=== PATIENT | male | born 1975 | race African-American/Black ===

== ENCOUNTER → 2019-01-06 09:11 | Outpatient (CLI) | payer OTHER, MEDICAID, SELFPAY ==
[2019-01-06 09:43] LABS: Hematocrit 41.8 % (41-53); Hemoglobin 13.7 g/dL (13.5-17.5); Mean Corpuscular HGB Conc 32.8 % (30-36); Mean Corpuscular Hemoglobin 26.1 PG (26-34); Mean Corpuscular Volume 79.4 fL (80-100); Platelet Count 208 X10^3/uL (150-400); Red Blood Cell Count 5.26 X10^6/uL (4.5-5.9); White Blood Cell Count 6.1 X10^3/uL (4.5-11.0)
[2019-01-06 09:59] LABS: Alanine Aminotransferase 32 IU/L (21-72); Albumin 4.4 g/dL (3.5-5.0); Albumin Globulin Ratio 1.5 (1.0-2.8); Alkaline Phosphatase 99 U/L (38-126); Aspartate Aminotransferase 42 IU/L (17-59); BUN Creatinine Ratio 18.9 (6-22); Bilirubin Total 0.5 mg/dL (0.2-1.3); Blood Urea Nitrogen 17 mg/dL (9-20); Calcium 9.2 mg/dL (8.4-10.2); Carbon Dioxide 24 mmol/L (22-32); Chloride 106 mmol/L (98-107); Cholesterol 204 mg/dL (140-199); Estimated Glomerular Filt Rate > 60.0 mL/min (>60); Globulin 2.9 g/dL (1.7-4.1); Glucose 97 mg/dL (70-100); HDL Cholesterol 105 mg/dL (40-60); HEMOLYSIS 21 (0-50); LDL Cholesterol Calculated 85 mg/dL (<100); Sodium 138 mmol/L (137-145); Total Protein 7.3 g/dL (6.3-8.2); Triglycerides 69 mg/dL (35-150)
[2019-01-06 10:07] LABS: Appearance Urine UA CLEAR; Bilirubin Urine UA NEGATIVE (NEGATIVE); Color Urine UA YELLOW; Glucose Urine UA NEGATIVE (Negative); Ketones Urine UA NEGATIVE (NEGATIVE); Leukocyte Esterase Urine UA NEGATIVE (NEGATIVE); Nitrite Urine UA NEGATIVE (Negative); Occult Blood Urine UA TRACE-INTACT (Negative); Protein Urine UA NEGATIVE (Negative); Specific Gravity Urine UA 1.025 (1.000-1.035); Urobilinogen Urine UA 0.2 E.U./dL (0.2); pH Urine UA 5.5 (4.5-8.0)
[2019-01-06 10:19] LABS: Bacteria Urine Occasional (0-1); RBC Urine 0-1/HPF (0-5/HPF); WBC Urine 0-1/HPF (0-5/HPF)
== END ==
PROVIDERS: Visit Provider Nurse Practitioner Family
DX: F10.10 Alcohol abuse, uncomplicated (principal); H53.9 Unspecified visual disturbance; Z13.6 Encounter for screening for cardiovascular disorders; Z00.00 Encounter for general adult medical examination without abnormal findings; Z72.0 Tobacco use
CPT/HCPCS: 36415; 80053; 80061; 81001; 85027

== ENCOUNTER → 2019-02-02 08:53 | Outpatient (CLI) | payer OTHER, MEDICAID, SELFPAY ==
--- NOTE | 2019-02-02 | DI.CT.S_ITS ---
PROCEDURE: CT ABDOMEN WO/W CON INDICATIONS: Cyst of kidney, acquired TECHNIQUE: Optional 5 mm thick noncontrast images acquired from the diaphragm to the iliac crests. After the administration of intravenous contrast, 5 mm thick images again acquired from the diaphragm to the iliac crests in the arterial and urographic phases. 5 mm thick coronal and sagittal reformats were then acquired. For radiation dose reduction, the following was used: automated exposure control, adjustment of mA and/or kV according to patient size. COMPARISON: None. FINDINGS: Image quality: Excellent. Lung bases: Lung bases are clear. Heart size is normal. Genitourinary: Kidneys are normal in size and symmetric in enhancement. No hydronephrosis. There is a 1.3 cm cyst in the superior pole of the right kidney demonstrating a thin septation. A 4 mm calcification is noted within the gravity dependent area of the cyst. There is a 5 mm low density cortical nodule in the superior pole of the left kidney, too small to further characterize but likely a simple cyst. Other solid organs: Liver is normal in size and enhancement. Gallbladder is normal. Biliary system is non dilated. Pancreas enhances normally. Spleen is normal in size and enhancement. No adrenal nodules. Peritoneum and bowel: Unenhanced bowel loops are normal in wall thickness and caliber. No free fluid or air. Nodes and vessels: No retroperitoneal or mesenteric adenopathy by size criteria. Aorta and inferior vena cava are normal in caliber. Bones: No suspicious bony lesions. No vertebral body compression fractures. Miscellaneous: No ventral hernias. IMPRESSION: 1. A 1.3 cm Bosniak 2F cyst in the superior pole of the right kidney. A followup CT or ultrasound is suggested in 6-12 months. 2. A 5 mm low density cortical nodule in the superior pole of the left kidney, too small to further characterize but likely a simple cortical cyst. Dictated by: Cecilia Coker M.D. on 02/02/2019 at 10:34 Approved by: Cecilia Coker M.D. on 02/02/2019 at 10:41
== END ==
PROVIDERS: PCP Nurse Practitioner Family; Visit Provider Physician Assistant
DX: N28.1 Cyst of kidney, acquired (principal)
CPT/HCPCS: 74170; Q9967

== ENCOUNTER → 2020-10-18 10:39 | Outpatient (CLI) | payer OTHER, MEDICAID, SELFPAY ==
--- NOTE | 2020-10-18 10:48 | DI.RAD.S_ITS ---
PROCEDURE: XR LUMBAR SPINE 2-3V INDICATIONS: low back pain TECHNIQUE: 3 views of the lumbar spine were acquired. COMPARISON: [facility], CT, L-SPINE WITHOUT CONTRAST, 11/08/2017, 13:00. FINDINGS: Bones: 5 [id number] vertebrae are present. There is trace multilevel retrolithesis. Moderate disc and foraminal narrowing L5-S1.No vertebral body compression fractures. No suspicious bony lesions. Soft tissues: Overlying bowel gas pattern is normal. No suspicious soft tissue calcifications. IMPRESSION: Degenerative changes at L5-S1. Dictated by: Tawny Cerna M.D. on 10/18/2020 at 13:05 Approved by: Tawny Cerna M.D. on 10/18/2020 at 13:07
[2020-10-18 11:57] LABS: Alanine Aminotransferase 19 IU/L (<50); Albumin 4.5 g/dL (3.5-5.0); Albumin Globulin Ratio 1.5 (1.0-2.8); Alkaline Phosphatase 75 U/L (38-126); Aspartate Aminotransferase 31 IU/L (17-59); BUN Creatinine Ratio 15.7 (6-22); Bilirubin Total 0.5 mg/dL (0.2-1.3); Blood Urea Nitrogen 13 mg/dL (9-20); Calcium 9.1 mg/dL (8.4-10.2); Carbon Dioxide 30 mmol/L (22-32); Chloride 103 mmol/L (98-107); Cholesterol 194 mg/dL (140-199); Estimated Glomerular Filt Rate > 60.0 mL/min (>60); Glucose 115 mg/dL (70-100); HDL Cholesterol 100 mg/dL (40-60); HEMOLYSIS < 15 (0-50); LDL Cholesterol Calculated 86 mg/dL (<100); Potassium 4.1 mmol/L (3.4-5.1); Sodium 137 mmol/L (137-145); Total Protein 7.5 g/dL (6.3-8.2); Triglycerides 38 mg/dL (35-150)
[2020-10-18 12:01] LABS: Hematocrit 43.5 % (41-53); Mean Corpuscular HGB Conc 32.2 % (30-36); Mean Corpuscular Hemoglobin 25.2 PG (26-34); Mean Corpuscular Volume 78.3 fL (80-100); Platelet Count 203 X10^3/uL (150-400); Red Blood Cell Count 5.56 X10^6/uL (4.5-5.9)
[2020-10-18 16:15] LABS: Hemoglobin A1C% w Est Avg Glu 5.3 % (4.0-6.0)
== END ==
PROVIDERS: PCP Nurse Practitioner Family; Referring Provider Nurse Practitioner Family; Visit Provider Nurse Practitioner Family
DX: M54.5 Low back pain (principal); N28.1 Cyst of kidney, acquired; Z13.6 Encounter for screening for cardiovascular disorders; R73.9 Hyperglycemia, unspecified
CPT/HCPCS: 36415; 72100; 80053; 80061; 83036; 85027

== ENCOUNTER → 2022-08-06 09:16 | Outpatient (CLI) | payer OTHER, MEDICAID, SELFPAY ==
[2022-08-06 10:57] LABS: Add Manual Diff / Slide Review NO; Basophils Absolute Auto 100 /uL (0-100); Basophils Percent Auto 1.6 % (0-2); Eosinophils Absolute Auto 300 /uL (0-450); Eosinophils Percent Auto 6.6 % (2-4); Hematocrit 40.1 % (41-53); Lymphocytes Absolute Auto 1200 /uL (1100-4500); Lymphocytes Percent Auto 24.8 % (25-40); Mean Corpuscular HGB Conc 32.4 % (30-36); Mean Corpuscular Hemoglobin 25.8 PG (26-34); Mean Corpuscular Volume 79.7 fL (80-100); Monocytes Absolute Auto 700 /uL (0-900); Neutrophils Absolute Auto 2600 /uL (1500-7000); Platelet Count 193 X10^3/uL (150-400); Red Blood Cell Count 5.03 X10^6/uL (4.5-5.9); Red Cell Distribution Width 13.8 % (11.6-14.8); White Blood Cell Count 4.8 X10^3/uL (4.5-11.0)
[2022-08-06 11:13] LABS: Alanine Aminotransferase 29 IU/L (<50); Albumin 4.3 g/dL (3.5-5.0); Albumin Globulin Ratio 1.5 (1.0-2.8); Alkaline Phosphatase 62 U/L (38-126); Aspartate Aminotransferase 40 IU/L (17-59); BUN Creatinine Ratio 15.7 (6-22); Bilirubin Total 0.6 mg/dL (0.2-1.3); Blood Urea Nitrogen 13 mg/dL (9-20); Calcium 9.4 mg/dL (8.4-10.2); Carbon Dioxide 28 mmol/L (22-32); Chloride 104 mmol/L (98-107); Cholesterol 204 mg/dL (140-199); Estimated Glomerular Filt Rate > 60 mL/min (>60); Globulin 2.9 g/dL (1.7-4.1); Glucose 94 mg/dL (70-100); HDL Cholesterol 109 mg/dL (40-60); HEMOLYSIS < 15 (0-50); LDL Cholesterol Calculated 87 mg/dL (<100); Potassium 4.1 mmol/L (3.4-5.1); Sodium 138 mmol/L (137-145); Total Protein 7.2 g/dL (6.3-8.2); Triglycerides 41 mg/dL (35-150)
[2022-08-06 11:40] LABS: Hemoglobin A1C% w Est Avg Glu 5.2 % (4.0-6.0); TSH w/ Reflex to FT4 0.72 uIU/mL (0.47-4.68)
[2022-08-06 12:02] LABS: Vitamin B12 407 pg/mL (239-931)
[2022-08-08 15:03] LABS: HEMOLYSIS < 15 (0-50); Iron 75 ug/dL (49-181)
[2022-08-08 15:15] LABS: Percent Iron Saturation 33 % (20-50); Total Iron Binding Capacity 229 ug/dL (261-462); Transferrin 196 mg/dL (206-381)
[2022-08-08 15:40] LABS: Ferritin 92 ng/mL (18-464)
== END ==
PROVIDERS: PCP Family Medicine; Referring Provider Family Medicine; Visit Provider Family Medicine
DX: F10.10 Alcohol abuse, uncomplicated (principal); F17.200 Nicotine dependence, unspecified, uncomplicated; G62.9 Polyneuropathy, unspecified
CPT/HCPCS: 36415; 80053; 80061; 82607; 82728; 83036; 83540; 83550; 84443; 85025

== ENCOUNTER 2023-04-16 11:51 | Emergency (ER) | payer OTHER, MEDICAID, SELFPAY ==
[2023-04-16 12:05] VITALS: BP 124/69; PULSE 60; RESP 18; TEMP 36.7; O2SAT 100; BMI 21.6
[2023-04-16] MEDS: ONDANSETRON 4 MG/2 ML INJ IV (12:32)
[2023-04-16 12:35] LABS: Add Manual Diff / Slide Review NO; Basophils Absolute Auto 100 /uL (0-100); Basophils Percent Auto 1.3 % (0-2); Eosinophils Absolute Auto 300 /uL (0-450); Eosinophils Percent Auto 5.8 % (2-4); Hematocrit 41.5 % (41-53); Hemoglobin 13.8 g/dL (13.5-17.5); Lymphocytes Absolute Auto 1600 /uL (1100-4500); Lymphocytes Percent Auto 28.1 % (25-40); Mean Corpuscular HGB Conc 33.2 % (30-36); Mean Corpuscular Hemoglobin 26.2 PG (26-34); Monocytes Absolute Auto 500 /uL (0-900); Monocytes Percent Auto 8.8 % (3-14); Neutrophils Absolute Auto 3200 /uL (1500-7000); Platelet Count 209 X10^3/uL (150-400); Red Blood Cell Count 5.25 X10^6/uL (4.5-5.9); White Blood Cell Count 5.8 X10^3/uL (4.5-11.0)
--- NOTE | 2023-04-16 13:02 | DI.CT.S_ITS ---
PROCEDURE: CT ABDOMEN PELVIS W CON INDICATIONS: right lower abdominal pain TECHNIQUE: After the administration of intravenous contrast, axial sections acquired from the lung bases to the pubic symphysis. Coronal and sagittal reformats were performed. For radiation dose reduction, the following was used: automated exposure control, adjustment of mA and/or kV according to patient size. COMPARISON: None. FINDINGS: Image quality: Excellent. Lung bases: Unremarkable. Heart: No significant findings. ABDOMEN: Liver: Unremarkable. Gallbladder: Unremarkable. Biliary ducts: Unremarkable. Pancreas: Unremarkable. Spleen: Unremarkable. Adrenal Glands: Unremarkable. Kidneys and Ureters: A 1.7 x 1.1 cm cyst or caliceal diverticulum is seen at the superior pole of the right kidney with dependent calcifications. There is a duplicated appearance of the right renal collecting system. Stomach and Bowel: Stomach, small bowel loops, and colon are unremarkable. The appendix is visualized and appears normal. Peritoneum: No abnormal intraperitoneal fluid. No free air. Ventral Wall: No hernias. Abdominal Nodes: No retroperitoneal or mesenteric adenopathy by size criteria. Vessels: Aorta and inferior vena cava are normal in size. PELVIS: Pelvic Organs: Unremarkable. Bladder: Unremarkable. Pelvic Nodes: No enlarged lymph nodes. Miscellaneous: No hernias are seen. Bones: Focal degenerative changes are seen at the L5-S1 level on the left. IMPRESSION: Normal appendix. No definite source for right lower quadrant pain identified. Approved by: Wellington Pena M.D. on 04/16/2023 at 13:49
[2023-04-16 13:15] LABS: Alanine Aminotransferase 33 IU/L (<50); Albumin 4.5 g/dL (3.5-5.0); Albumin Globulin Ratio 1.6 (1.0-2.8); Alkaline Phosphatase 104 U/L (38-126); Aspartate Aminotransferase 37 IU/L (17-59); BUN Creatinine Ratio 11.4 (6-22); Bilirubin Total 0.6 mg/dL (0.2-1.3); Blood Urea Nitrogen 10 mg/dL (9-20); Calcium 9.3 mg/dL (8.4-10.2); Carbon Dioxide 27 mmol/L (22-32); Chloride 103 mmol/L (98-107); Estimated Glomerular Filt Rate > 60 mL/min (>60); Globulin 2.8 g/dL (1.7-4.1); Glucose 101 mg/dL (70-100); HEMOLYSIS < 15 (0-50); Lipase 58 U/L (23-300); Potassium 4.2 mmol/L (3.4-5.1); Sodium 135 mmol/L (137-145); Total Protein 7.3 g/dL (6.3-8.2)
[2023-04-16 14:14] VITALS: PULSE 57; O2SAT 97
[2023-04-16 14:15] VITALS: BP 115/74; PULSE 55; O2SAT 98
[2023-04-16 14:30] VITALS: BP 124/78; PULSE 58; RESP 19; O2SAT 98
--- NOTE | 2023-04-16 14:48 | ED.ABDPAIN ---
HPI - Abdominal Pain General Chief Complaint: Abdominal Pain Stated Complaint: poss apendicitis/ABD pain Time Seen by Provider: 04/16/23 14:26 Source: patient Mode of arrival: Ambulatory History of Present Illness HPI narrative: Patient here for right lower quadrant pain that radiates to the right groin/scrotum. Patient states he felt pain when he was trying to help move his sister this past Friday a lot of heavy items. Today he was trying to move a mattress and felt immediate pain again. No scrotal swelling. No urinary complaints. No fever or chills. Increased pain with movement and palpation. No prior history of inguinal hernia. Related Data Home Medications Medication Instructions Recorded Confirmed ibuprofen 200 mg tablet (Advil) 200 mg PO Q6H PRN 08/06/22 05/01/23 Allergies Allergy/AdvReac Type Severity Reaction Status Date / Time adhesive tape [ADHESIVE TAPE] Allergy Severe BLISTERS Verified 05/01/23 14:43 pollen extracts Allergy Severe Headaches, Verified 05/01/23 14:43 sinus Review of Systems Review of Systems Narrative: GENERAL: negative chills, fatigue, malaise, fever, sweats. HEENT: negative sinus pain, ear pain, sore throat RESPIRATORY: negative dyspnea, cough CARDIOVASCULAR: negative chest pain, palpitations GASTROINTESTINAL: negative nausea, vomiting, positive abdominal pain : negative dysuria, frequency, hematuria MUSCULOSKELETAL: negative muscle or bony pain SKIN: negative rash, skin lesions NEUROLOGIC: negative weakness, numbness ROS Unobtainable: All systems reviewed & are unremarkable except as noted in HPI and below Patient History Medical History Ankle pain Ankle pain (Unknown) Bimalleolar fracture of left ankle Chronic back pain Chronic back pain (Unknown) Chronic midline thoracic back pain (01/01/18) Chronic pain of scapula (01/01/18) Cyst of right kidney (01/01/18) Medial orbital wall fracture Proximal humerus fracture Renal cyst Surgical History History of ankle surgery (05/2017) History of surgery on arm (Unknown) Family History Family/Other Adopted Social History marital status: pets and animals: No education level: high school occupational status: employed leisure activities: sports seatbelt use: always helmet use: Yes water heater temp set < 120 deg: Yes working smoke detector in home: Yes fire extinguisher in home: Yes carbon monox detector in home: Yes firearms in home: No do you feel safe at home: Yes Smoking Status: Current every day smoker Tobacco: How many years used: 35 Smokeless tobacco user: chewing tobacco (1 tin a week) quit status: not considering quitting second hand exposure: Yes (Daily) alcohol intake: current substance use type: does not use and marijuana (smokes daily) during the past year weight has: remained stable well-balanced diet: about half the time daily servings fruits/ve-1 caffeine: Yes eating out: 1-3 times/week Smoking Status: Current every day smoker tobacco type: cigarettes alcohol intake frequency: 3 or more drinks per day Substance Use Type: marijuana Exam Narrative Exam Narrative: GENERAL: in no distress, not toxic not dyspneic HEAD: Normocephalic. EYES: Pupils equal round ENT: Mucous membranes moist. NECK: Trachea midline. CARDIOVASCULAR: Regular rate and rhythm RESPIRATORY: Clear to auscultation. Breath sounds equal bilaterally. No wheezes, rales, or rhonchi. GASTROINTESTINAL: Abdomen soft, reproducible right suprapubic area tenderness. There is inguinal agrees tenderness but no palpable bulge or hernia. Digital insertion scrotal sac no palpable hernia or mass on coughing. Painful with stretching his abdominal wall actively. EXTREMITIES: No gross deformities. BACK: No flank tenderness. NEURO: AOx4. SKIN: Warm and dry PSYCH: Not anxious, is cooperative Initial Vital Signs Initial Vital Signs: Vital Signs Temperature 98.1 F 04/16/23 12:05 Pulse Rate 60 04/16/23 12:05 Respiratory Rate 18 04/16/23 12:05 Blood Pressure 124/69 04/16/23 12:05 Pulse Oximetry 100 04/16/23 12:05 Oxygen Delivery Method Room Air 04/16/23 12:05 Course Orders Ordered: Discontinued Medications Baclofen (Baclofen 10 Mg Tablet) 10 mg PO NOW ONE Stop: 04/16/23 14:49 Last Admin: 04/16/23 14:59 Dose: 10 mg Documented By: CHRISTIAN Ketorolac Tromethamine (Ketorolac 30 Mg/Ml Vial) 15 mg IV NOW ONE Stop: 04/16/23 14:49 Last Admin: 04/16/23 14:59 Dose: 15 mg Documented By: CHRISTIAN Ondansetron HCl (Ondansetron 4 Mg Odt) 4 mg PO NOW PRN PRN Reason: Nausea And Vomiting Ondansetron HCl (Ondansetron 4 Mg/2 Ml Inj) 4 mg IV NOW PRN PRN Reason: Nausea And Vomiting Last Admin: 04/16/23 12:32 Dose: 4 mg Documented By: RAVI Vital Signs Vital signs: Vital Signs - 8 hr 04/16/23 12:05 04/16/23 14:14 04/16/23 14:15 Temperature 98.1 F Pulse Rate 60 57 L Respiratory Rate 18 Blood Pressure 124/69 115/74 Pulse Oximetry 100 97 Oxygen Delivery Method Room Air 04/16/23 14:15 04/16/23 14:30 04/16/23 14:30 Temperature Pulse Rate 55 L 58 L Respiratory Rate 19 Blood Pressure 124/78 Pulse Oximetry 98 98 Oxygen Delivery Method 04/16/23 14:50 04/16/23 14:50 Temperature Pulse Rate 53 L Respiratory Rate Blood Pressure 107/66 Pulse Oximetry 97 Oxygen Delivery Method MDM - Abdominal Pain Lab Data 04/16/23 12:25 04/16/23 12:25 Labs: Lab Results 04/16/23 04/16/23 Range/Units 12:25 12:25 WBC 5.8 (4.5-11.0) X10^3/uL RBC 5.25 (4.5-5.9) X10^6/uL Hgb 13.8 (13.5-17.5) g/dL Hct 41.5 (41-53) % MCV 79.0 L (80-100) fL MCH 26.2 (26-34) PG MCHC 33.2 (30-36) % RDW 14.0 (11.6-14.8) % Plt Count 209 (150-400) X10^3/uL Neut % (Auto) 56.0 (50-75) % Lymph % (Auto) 28.1 (25-40) % [place] % (Auto) 8.8 (3-14) % Eos % (Auto) 5.8 H (2-4) % Baso % (Auto) 1.3 (0-2) % Neut # (Auto) 3200 (8260-3646) /uL Lymph # (Auto) 1600 (8135-1461) /uL [place] # (Auto) 500 (0-900) /uL Eos # (Auto) 300 (0-450) /uL Baso # (Auto) 100 (0-100) /uL Sodium 135 L (137-145) mmol/L Potassium 4.2 (3.4-5.1) mmol/L Chloride 103 (98-107) mmol/L Carbon Dioxide 27 (22-32) mmol/L BUN 10 (9-20) mg/dL Creatinine 0.88 (0.66-1.25) mg/dL Estimated GFR > 60 (>60) mL/min BUN/Creatinine Ratio 11.4 (6-22) Glucose 101 H (70-100) mg/dL Calcium 9.3 (8.4-10.2) mg/dL Total Bilirubin 0.6 (0.2-1.3) mg/dL AST 37 (17-59) IU/L ALT 33 (<50) IU/L Alkaline Phosphatase 104 (38-126) U/L Total Protein 7.3 (6.3-8.2) g/dL Albumin 4.5 (3.5-5.0) g/dL Globulin 2.8 (1.7-4.1) g/dL Albumin/Globulin Ratio 1.6 (1.0-2.8) Lipase 58 (23-300) U/L Point of care testing: Urine Dip Bedside Urine Glucose Negative Bedside Urine Bilirubin - Negative Bedside Urine Ketone - Negative Urine Specific [place] 1.010 Bedside Urine Occult Blood - Negative Bedside Urine pH 7.5 Bedside Urine Protein - Negative Bedside Urine Urobilinogen - Negative Bedside Urine Nitrite - Negative Bedside Urine Leukocytes - Negative Esterase Imaging Data CT scan - abdomen/pelvis: Radiologist's Impression: [address] [address] [address] Scan Report Signed Patient: Haider Mabry MR#: [id number] : 1975 Acct:[id number] Age/Sex: 47 / M Date of Service: 04/16/23 Loc: ED Accession Number: [id number] ?? Procedure: CT abdomen pelvis w con Ordering Provider: Kai Fierro MD PROCEDURE:? CT ABDOMEN PELVIS W CON ? INDICATIONS:? right lower abdominal pain ? TECHNIQUE:? After the administration of intravenous contrast, axial sections acquired from the lung bases to the pubic symphysis.? Coronal and sagittal reformats were performed.? For radiation dose reduction, the following was used:? automated exposure control, adjustment of mA and/or kV according to patient size.? ? COMPARISON:? None. ? FINDINGS:? Image quality:? Excellent.? ? Lung bases:? Unremarkable. Heart:? No significant findings. ? ABDOMEN: Liver:? Unremarkable.? ? Gallbladder:? Unremarkable. Biliary ducts:? Unremarkable.? ? Pancreas:? Unremarkable.? ? Spleen:? Unremarkable.? ? Adrenal Glands:? Unremarkable.? ? Kidneys and Ureters:? A 1.7 x 1.1 cm cyst or caliceal diverticulum is seen at the superior pole of the right kidney with dependent calcifications.? There is a duplicated appearance of the right renal collecting system. ? Stomach and Bowel:? Stomach, small bowel loops, and colon are unremarkable.? The appendix is visualized and appears normal. Peritoneum:? No abnormal intraperitoneal fluid.? No free air.? ? Ventral Wall: ? No hernias.? Abdominal Nodes:? No retroperitoneal or mesenteric adenopathy by size criteria.? Vessels:? Aorta and inferior vena cava are normal in size.? ? PELVIS: Pelvic Organs:? Unremarkable.? ? Bladder:? Unremarkable.? ? Pelvic Nodes: No enlarged lymph nodes.? Miscellaneous: No hernias are seen. ? ? ? Bones:? Focal degenerative changes are seen at the L5-S1 level on the left. ? ? IMPRESSION:? Normal appendix.? No definite source for right lower quadrant pain identified. ? ? ? Approved by: Wellington Pena M.D. on 04/16/2023 at 13:49? [facility] Narrative Medical decision making narrative: Patient here for right lower quadrant pain that radiates to the right groin/scrotum. Patient states he felt pain when he was trying to help move his sister this past Friday a lot of heavy items. Today he was trying to move a mattress and felt immediate pain again. No scrotal swelling. No urinary complaints. No fever or chills. Increased pain with movement and palpation. No prior history of inguinal hernia. After history and exam CBC CMP Toradol baclofen CT abdomen pelvis [facility] CC: Abdominal pain Complicating co-morbidities: None Data collected from: Patient and partner Medical records reviewed: No recent visit for this complaint Differential considered: Includes but not limited to inguinal hernia muscle strain appendicitis kidney stone Exam documented above, pertinent findings include: Tender right inguinal crease Lab Test results independently reviewed as above. Pertinent findings: WBC 5.8 sodium 135 AST 37 ALT 33 Independently reviewed EKG none indicated Imaging studies independently reviewed: CT abdomen pelvis no acute finding Consultations: None indicated Treatments: Toradol baclofen normal saline Re-evaluations: Reviewed results with patient and partner, at this time this is reassuring. However could be developing a hernia, at the very least did strain the abdominal wall muscles. Return precautions reviewed with him. Referral provided as well. Nontoxic at discharge. He desires discharge home. Discussion: Appropriate for discharge home. Exam and laboratory studies imaging are reassuring. Patient likely strained his abdominal wall muscles. No evidence of hernia at this time. Return precautions reviewed. Pain is controlled. He desires discharge home. Diagnosis: Abdominal wall strain Discharge Plan Departure Patient Disposition: Home Clinical Impression: Strain of abdominal wall Instructions: DI for Abdominal Muscle Strain Activity Restrictions/Additional Instructions: Please see family doctor in a week and please call provided general surgeon tomorrow for office re-evaluation of your abdominal pain. If likely strained the abdominal wall muscles, and possibly developing an inguinal hernia. Please do try to stop smoking. Coughing will worsen this pain. Return if worse if any questions or concerns. Prescriptions: No Action ibuprofen [Advil] 200 mg tablet 200 mg PO Q6H PRN Referrals: Modesto Pearson MD [Physician] - Bill Griggs DO [Primary Care Provider] - Stand Alone Forms: Patient Portal/API
[2023-04-16 14:50] VITALS: BP 107/66; PULSE 53; O2SAT 97
[2023-04-16] MEDS: KETOROLAC 30 MG/ML VIAL 15 MG IV (14:59)
[2023-04-16] MEDS: BACLOFEN 10 MG TABLET PO (14:59)
== END 2023-04-16 15:04 | disposition home or self-care (01) ==
PROVIDERS: Emergency Provider Emergency Medicine; PCP Family Medicine
DX: S39.011A Strain of muscle, fascia and tendon of abdomen, initial encounter (principal)
CPT/HCPCS: 36415; 74177; 80053; 81003; 83690; 85025; 96374; 96375; 99284; J1885; J2405; Q9967

== ENCOUNTER 2023-05-13 08:46 | Day surgery (SDC) | payer OTHER, MEDICAID, SELFPAY ==
[2023-05-01 12:41] VITALS: BMI 22.6
[2023-05-13] VITALS (7 sets, daily range): BP systolic 105–128; BP diastolic 67–90; PULSE 46–77; RESP 13–16; TEMP 36.2–36.6; O2SAT 96–100; BMI 21.5
[2023-05-13 09:52] LABS: Ethanol (ETOH) < 10 mg/dL
[2023-05-13] MEDS: LACTATED RINGERS 1,000 ML 120 ML IV (11:52)
--- NOTE | 2023-05-13 12:49 | PM.PREOP ---
Pre-operative Note COVID-19 COVID-19 status: Not tested Interval Note History & Physical reviewed/Exam performed by Physician: Yes Changes to H&P: No ASA Class (for procedural sedation): I
[2023-05-13] MEDS: CEFAZOLIN 2 GM/100 ML PREMIX 100 ML IV (13:20)
--- NOTE | 2023-05-13 13:40 | SUR.OPER ---
Supine on padded OR bed, head on pillow, arms secured on padded arm boards at <90 degrees abduction, legs uncrossed, safety belt at thigh, tape over blanket over lower legs.
[2023-05-13] MEDS: BUPIVACAINE 0.5% (PF) 30 ML, EPINEPHrine 0.15 MG INJ (13:45)
--- NOTE | 2023-05-13 14:39 | PM.OP.1 ---
Operative Date/Time/Diagnoses Date of procedure: 05/13/23 Time of procedure: 14:39 Pre-op diagnosis: Right inguinal hernia Post-op diagnosis: same Procedure & Clinicians Procedure: Open right inguinal hernia repair with mesh Same procedure as scheduled: Yes Surgeon: Chacorta Faria Click Yes if Unassisted: Yes Anesthesia Type: General Operative Notes Procedure in detail: Preoperative antibiotic was administered. The patient was brought to the operating room and placed on the table in supine position general anesthesia was induced. The right groin was prepped and draped in the normal fashion and a time-out was performed. Roughly 10 mL of local anesthetic were injected into the skin and subcutaneous adipose tissue over the right groin. A 6 cm incision was made over the right inguinal canal. Dissection was carried down through the subcutaneous adipose tissue. We exposed the external oblique aponeurosis in the direction of the fibers. Additional local was injected deep to the aponeurosis. A 15 blade scalpel was used to belem the external oblique aponeurosis. Metzenbaum scissors were used to carefully open the aponeurosis in the direction of the fibers taking care not to injure the underlying ilioinguinal nerve which was well seen and protected. We completely exposed the inguinal canal. The cord was dissected free from the inguinal ligament and floor of the inguinal canal and the external oblique aponeurosis was dissected off of the internal oblique taking care not to injure the hypogastric nerve. We encircled the cord with a Maryuri drain for retraction. There appeared to be a direct defect bulging in the floor of the canal. No indirect sac was identified. We then placed a polypropylene mesh against the floor of the inguinal canal. The mesh was secured with multiple interrupted 3-0 Prolene sutures to the pubic tubercle and shelving edge of the inguinal ligament as well as to the conjoint tendon medially. We overlapped the tails to recreate an internal ring and secured the medial tail to the inguinal ligament with additional sutures. We injected some more local into the fatty tissue in the inguinal canal and cord. Finally, we removed the Maryuri drain and closed the external oblique fascia with a running 3-0 Vicryl suture. Skin was closed with interrupted 3-0 Vicryl dermal sutures and a running 4 Monocryl subcuticular stitch. EBL 5 mL The patient was awakened and brought to recovery room. Post-operative Condition: stable Disposition: PACU
== END 2023-05-13 15:15 | disposition home or self-care (01) ==
PROVIDERS: Anesthesiology; PCP Family Medicine; Referring Provider Surgery; Visit Provider Surgery
PROC: (CPT 49505; principal; 2023-05-13 12:45)
DX: K40.90 Unilateral inguinal hernia, without obstruction or gangrene, not specified as recurrent (principal)
CPT/HCPCS: 49505; 36415; 80320; J0171; J0690; J1100; J2250; J2405; J3010

== ENCOUNTER 2023-07-26 03:46 | Emergency (ER) | payer OTHER, MEDICAID, SELFPAY ==
[2023-07-26 03:56] VITALS: BP 105/74; PULSE 92; RESP 18; TEMP 37.2; O2SAT 98; BMI 20.9
--- NOTE | 2023-07-26 04:00 | DI.RAD.S_ITS ---
PROCEDURE: XR HAND RT MIN 3V INDICATIONS: injury TECHNIQUE: 3 views of the hand(s) acquired. COMPARISON: None. FINDINGS: Bones: Oblique comminuted fracture involving the proximal and mid aspects of the 3rd proximal phalanx. Possible articular extension proximally. Mildly displaced avulsion fracture of the volar base of the 3rd middle phalanx. Transverse fracture at the base of the proximal aspect of the 3rd metacarpal without definite articular extension. Possible small fracture involving the base of the 2nd metacarpal bone. Carpal bones are normally aligned. No suspicious bony lesions. Soft tissues: No suspicious soft tissue calcifications. IMPRESSION: Fractures as described above involving the 2nd metacarpal, 3rd metacarpal, proximal and middle phalanx. Findings are concordant with preliminary interpretation provided by [facility]. Dictated by: Adolfo Diaz M.D. on 07/26/2023 at 7:53 Approved by: Adolfo Diaz M.D. on 07/26/2023 at 7:56
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
[2023-07-26 04:53] VITALS: BP 108/62; PULSE 70; RESP 16; TEMP 37.1; O2SAT 98
== END 2023-07-26 04:54 | disposition home or self-care (01) ==
PROVIDERS: Emergency Provider Family Medicine Addiction Medicine; PCP Family Medicine
DX: S62.612A Displaced fracture of proximal phalanx of right middle finger, initial encounter for closed fracture (principal); S62.622A Displaced fracture of middle phalanx of right middle finger, initial encounter for closed fracture; S62.610A Displaced fracture of proximal phalanx of right index finger, initial encounter for closed fracture; Y04.2XXA Assault by strike against or bumped into by another person, initial encounter
CPT/HCPCS: 29130; 73130; 99281; 99283

== ENCOUNTER → 2024-01-27 17:31 | Outpatient (CLI) | payer OTHER, MEDICAID, SELFPAY ==
--- NOTE | 2024-01-27 17:34 | DI.RAD.S_ITS ---
PROCEDURE: XR CHEST 2V INDICATIONS: 3wk productive cough; 8lb wgt loss, 40 pack yr hx TECHNIQUE: 2 views of the chest were acquired. COMPARISON: None. FINDINGS: Surgical changes and devices: Prior surgical fixation of the right humerus. Lungs and pleura: Lungs are clear. No pleural effusions or pneumothorax. Emphysema. Mediastinum: Mediastinal contours are normal. Heart size is normal. Bones and chest wall: No suspicious bony abnormalities. Soft tissues appear unremarkable. IMPRESSION: No acute cardiopulmonary abnormality is seen. Consider annual lung cancer screening. Dictated by: Jeremie De M.D. on 01/27/2024 at 18:22 Approved by: Jeremie De M.D. on 01/27/2024 at 18:23
== END ==
PROVIDERS: PCP Family Medicine; Referring Provider Student in an Organized Health Care Education/Training Program; Visit Provider Student in an Organized Health Care Education/Training Program
DX: J40 Bronchitis, not specified as acute or chronic (principal); J44.1 Chronic obstructive pulmonary disease with (acute) exacerbation
CPT/HCPCS: 71046

== ENCOUNTER → 2024-04-04 10:00 | Outpatient (CLI) | payer OTHER, MEDICAID, SELFPAY | PROVIDERS: PCP Family Medicine; Visit Provider Physician Assistant Surgical | DX: J02.9 Acute pharyngitis, unspecified (principal); R21 Rash and other nonspecific skin eruption | CPT/HCPCS: 87070 ==

== ENCOUNTER → 2024-10-11 12:47 | Outpatient (CLI) | payer OTHER, SELFPAY ==
[2024-10-11 14:13] LABS: Influenza A - CEPHEID Flu A NEGATIVE (NEGATIVE); Influenza B - CEPHEID Flu B NEGATIVE (NEGATIVE); Respiratory Syncytial Virus Negative (Negative)
[2024-10-11 14:14] LABS: COVID-19 CEPHEID 4-PLEX PCR Negative (Negative)
== END ==
PROVIDERS: PCP Family Medicine; Visit Provider Nurse Practitioner Family
DX: J34.89 Other specified disorders of nose and nasal sinuses (principal)
CPT/HCPCS: 87635; 87400 ×2; 87420; 0241U

== ENCOUNTER 2024-10-16 05:08 | Emergency (ER) | payer OTHER, SELFPAY ==
--- NOTE | 2024-10-16 05:14 | ED_ITS ---
HPI - Headache <Fidel Yunior, - Last Filed: 10/16/24 06:40> General Chief Complaint: Headache Stated Complaint: Severe headache-right side Time Seen by Provider: 10/16/24 05:14 History of Present Illness HPI Narrative: 49-year-old male past medical history migraine headaches comes into the ED from home for evaluation of headache. States that the last time he had a migraine headache was approximately 5 years ago, states it is exactly similar to how he i s feeling now, stating started the right side of his head, states that today symptoms started approximately 2 weeks ago states he did go to a walk-in clinic for this was prophylactically treated for sinusitis and sent home with antibiotics, Augmentin, states he is still currently on this. He denies any trauma or falls denies any visual disturbances, states that he has not having any relief to his symptoms therefore decided come into the ED for further evaluation treatment. Time of evaluation patient NIH of 0, not complaining of any other symptoms such as chest pain shortness breath fever chills nausea vomiting abdominal pain or any other GI/ symptoms time. Review of records show that patient went into the walk-in clinic on 10/28/2024 for similar symptoms stating that he was having right-sided maxillary sinus pain headache plan his right eye for a proximally 1 week prior to that visit. He was at that time diagnosed with sinusitis was sent home with symptomatic relief such as Flonase Tylenol ibuprofen as well as Augmentin Related Data Home Medications Medication Instructions Recorded Confirmed ibuprofen 200 mg tablet (Advil) 200 mg PO Q6H PRN Pain (Scale 08/06/22 10/11/24 Score 1-3) Previous Rx's Medication Instructions Recorded albuterol sulfate 90 mcg/actuation 1 - 2 inh inhalation Q4-6H PRN 09/09/24 aerosol inhaler shortness of breath or wheezing #8.5 grams cetirizine 10 mg tablet (Zyrtec) 10 mg PO DAILY PRN allergy 09/09/24 symptoms #30 tabs amoxicillin 875 mg-potassium 1 tab PO BID #14 tabs 10/11/24 clavulanate 125 mg tablet tramadol 50 mg tablet 50 mg PO Q6H PRN pain #7 tabs 10/16/24 Allergies Allergy/AdvReac Type Severity Reaction Status Date / Time adhesive tape [ADHESIVE TAPE] Allergy Severe BLISTERS Verified 10/11/24 12:40 pollen extracts Allergy Severe Headaches, Verified 10/11/24 12:40 sinus Review of Systems <Fidel Mojica DO - Last Filed: 10/16/24 06:40> Review of Systems Narrative: General: Denies fever, chills, weight loss HEENT: Positive headache, denies eye drainage, eye irritation, head trauma, sore throat, voice change Cardiovascular: Denies any chest pain, palpitations, shortness of breath, tachycardia Respiratory: Denies any shortness of breath, cough, wheeze, stridor GI/: Denies any abdominal pain, nausea, vomiting, diarrhea, bright red blood per rectum, melanotic stools, urinary frequency, urinary retention, dysuria, hematuria MSK: Denies any joint pain, muscle pains, swelling Skin: Denies any rashes, lesions, discoloration Neuro: Denies any headache, lightheadedness, dizziness, fainting, weakness Psych: Denies SI/HI Patient History <Fidel Mojica DO - Last Filed: 10/16/24 06:40> Medical History (Updated 10/16/24 @ 07:26 by Maile Schuster DO) Ankle pain (Unknown) Chronic back pain (Unknown) Chronic back pain Ankle pain Cyst of right kidney (01/01/18) Chronic pain of scapula (01/01/18) Chronic midline thoracic back pain (01/01/18) Renal cyst Medial orbital wall fracture Proximal humerus fracture Bimalleolar fracture of left ankle Surgical History (Updated 05/28/23 @ 09:46 by Kristy Lua RN) Hx of inguinal hernia repair History of ankle surgery (05/2017) History of surgery on arm (Unknown) Family History Family/Other Adopted Social History marital status: household members: family pets and animals: No education level: high school occupational status: employed leisure activities: sports seatbelt use: always helmet use: Yes water heater temp set < 120 deg: Yes working smoke detector in home: Yes fire extinguisher in home: Yes carbon monox detector in home: Yes firearms in home: No do you feel safe at home: Yes Smoking Status: Current every day smoker Tobacco: How many years used: 35 Smokeless tobacco user: chewing tobacco (1 tin a week) quit status: not considering quitting second hand exposure: Yes (Daily) alcohol intake: current substance use type: does not use and marijuana (smokes daily) during the past year weight has: remained stable well-balanced diet: about half the time daily servings fruits/ve-1 caffeine: Yes eating out: 1-3 times/week Smoking Status: Current every day smoker tobacco type: cigarettes alcohol intake frequency: 3 or more drinks per day Exam <Fidel Mojica, DO - Last Filed: 10/16/24 06:40> Narrative Exam Narrative: General: Cooperative, comfortable, well-developed, not in acute distress HEENT: Normocephalic, atraumatic, PERRLA, normal sclera, eyelids normal, Neck: Active full range of motion, atraumatic Chest: Normal to inspection, negative crepitus, no overlying erythema ecchymosis Respiratory: Normal respiratory effort, not in acute respiratory distress, clear to auscultation bilaterally negative cough, wheeze, tachypnea, rhonchi, rales Cardiology: Regular rate rhythm negative gallop, murmur, rubs GI/: Normal to inspection, soft, nonrigid, no tenderness to palpation, exam deferred MSK: Full range of active range of motion of all 4 extremities, atraumatic Skin: No rashes lesions noted Neuro: NIH of 0, no focal deficits noted Alert awake oriented x3, moves all 4 extremities spontaneously, cranial nerves intact, able to answer all questions appropriately follows commands appropriately Psych: Cooperative, negative suicidal or homicidal ideations Initial Vital Signs Initial Vital Signs: Vital Signs Temperature 98.1 F 10/16/24 05:16 Pulse Rate 91 H 10/16/24 05:16 Respiratory Rate 18 10/16/24 05:16 Blood Pressure 142/80 H 10/16/24 05:16 Pulse Oximetry 96 10/16/24 05:16 Oxygen Delivery Method Room Air 10/16/24 05:16 <Maile Schuster, DO - Last Filed: 10/16/24 18:37> Initial Vital Signs Initial Vital Signs: Vital Signs Temperature 98.1 F 10/16/24 05:16 Pulse Rate 91 H 10/16/24 05:16 Respiratory Rate 18 10/16/24 05:16 Blood Pressure 142/80 H 10/16/24 05:16 Pulse Oximetry 96 10/16/24 05:16 Oxygen Delivery Method Room Air 10/16/24 05:16 Course <Fidel Mojica DO - Last Filed: 10/16/24 06:40> Orders Ordered: Discontinued Medications Acetaminophen (Acetaminophen 325 Mg Tablet) 650 mg PO NOW ONE Stop: 10/16/24 05:19 Last Admin: 10/16/24 05:31 Dose: 650 mg Documented By: COLLIN Dexamethasone (Dexamethasone 10 Mg/Ml Vial) 10 mg IV NOW ONE Stop: 10/16/24 05:19 Last Admin: 10/16/24 05:31 Dose: 10 mg Documented By: COLLIN Diphenhydramine HCl (Diphenhydramine 50 Mg/Ml Vial) 25 mg IV NOW ONE Stop: 10/16/24 05:19 Last Admin: 10/16/24 05:31 Dose: 25 mg Documented By: COLLIN Sodium Chloride (Normal Saline 0.9%) 1,000 mls @ 1,000 mls/hr IV BOLUS ONE Stop: 10/16/24 06:17 Last Infusion: 10/16/24 06:35 Dose: Infused Documented By: Admin: 10/16/24 05:31 Dose: 1,000 mls/hr Documented By: COLLIN Magnesium Sulfate (Magnesium Sulfate) 2 gm in 50 mls @ 25 mls/hr IV NOW ONE Stop: 10/16/24 08:36 Last Infusion: 10/16/24 07:52 Dose: Infused Documented By: LYNNE Co-signed By: MIRIAM Infusion: 10/16/24 07:19 Dose: 150 mls/hr Documented By: LYNNE Co-signed By: PARAMJIT Admin: 10/16/24 06:43 Dose: 25 mls/hr Documented By: COLLIN Co-signed By: LYNNE(2) Metoclopramide HCl (Metoclopramide 10 Mg/2 Ml Inj) 10 mg IV NOW ONE Stop: 10/16/24 05:19 Last Admin: 10/16/24 05:32 Dose: 10 mg Documented By: COLLIN Prochlorperazine (Prochlorperazine 10 Mg/2 Ml Vial) 10 mg IV NOW ONE Stop: 10/16/24 06:38 Last Admin: 10/16/24 06:43 Dose: 10 mg Documented By: COLLIN Vital Signs Vital signs: Vital Signs - 8 hr 10/16/24 10:46 Temperature 98.7 F Pulse Rate 74 Respiratory Rate 16 Blood Pressure 105/65 Pulse Oximetry 98 Oxygen Delivery Method Room Air <Maile Schuster, - Last Filed: 10/16/24 18:37> Orders Ordered: Discontinued Medications Acetaminophen (Acetaminophen 325 Mg Tablet) 650 mg PO NOW ONE Stop: 10/16/24 05:19 Last Admin: 10/16/24 05:31 Dose: 650 mg Documented By: COLLIN Dexamethasone (Dexamethasone 10 Mg/Ml Vial) 10 mg IV NOW ONE Stop: 10/16/24 05:19 Last Admin: 10/16/24 05:31 Dose: 10 mg Documented By: COLLIN Diphenhydramine HCl (Diphenhydramine 50 Mg/Ml Vial) 25 mg IV NOW ONE Stop: 10/16/24 05:19 Last Admin: 10/16/24 05:31 Dose: 25 mg Documented By: COLLIN Sodium Chloride (Normal Saline 0.9%) 1,000 mls @ 1,000 mls/hr IV BOLUS ONE Stop: 10/16/24 06:17 Last Infusion: 10/16/24 06:35 Dose: Infused Documented By: Admin: 10/16/24 05:31 Dose: 1,000 mls/hr Documented By: COLLIN Magnesium Sulfate (Magnesium Sulfate) 2 gm in 50 mls @ 25 mls/hr IV NOW ONE Stop: 10/16/24 08:36 Last Infusion: 10/16/24 07:52 Dose: Infused Documented By: LYNNE Co-signed By: MIRIAM Infusion: 10/16/24 07:19 Dose: 150 mls/hr Documented By: LYNNE Co-signed By: PARAMJIT Admin: 10/16/24 06:43 Dose: 25 mls/hr Documented By: COLLIN Co-signed By: LYNNE(2) Metoclopramide HCl (Metoclopramide 10 Mg/2 Ml Inj) 10 mg IV NOW ONE Stop: 10/16/24 05:19 Last Admin: 10/16/24 05:32 Dose: 10 mg Documented By: COLLIN Prochlorperazine (Prochlorperazine 10 Mg/2 Ml Vial) 10 mg IV NOW ONE Stop: 10/16/24 06:38 Last Admin: 10/16/24 06:43 Dose: 10 mg Documented By: COLLIN Vital Signs Vital signs: Vital Signs - 8 hr 10/16/24 10:46 Temperature 98.7 F Pulse Rate 74 Respiratory Rate 16 Blood Pressure 105/65 Pulse Oximetry 98 Oxygen Delivery Method Room Air MDM - Headache <Fidel Mojica, DO - Last Filed: 10/16/24 06:40> Differential Diagnosis Differential diagnosis: Likely migraine, tension headache and headache [facility] Narrative Medical decision making narrative: 49-year-old male with a history of migraine headaches presents for headache. States it is similar to his previous, states it is to the right side of his head, states it started proximally 2 weeks ago denies any trauma or falls. Light sounds make it worse. States is currently on Augmentin for prophylaxis treatment for sinusitis. At time of evaluation patient NIH of 0. No focal deficits noted Patient had fluids, Reglan Benadryl Decadron Tylenol here in the emergency department. 0635: Patient was re-evaluated after administration medication he states that he had complete resolution of his symptoms however upon sitting he started having recurrence of the headache. States that he feels like the headache is positional in nature, given the fact that patient is stating significant headache despite administration medication and no recent CT of the head risks benefits was discussed with the patient will proceed with obtaining CT scan of the head additional medications ordered for patient's headache, Compazine 10 mg and magnesium 2 g ordered. 0700: Patient was signed out to morning provider, patient pending CT scan of the head and re-evaluation after additional medication for headache <Maile Schuster, DO - Last Filed: 10/16/24 18:37> Imaging Data CT scan - head: Radiologist's Impression: No acute intracranial findings mild bilateral ethmoid sinus disease. [facility] Narrative Medical decision making narrative: 49-year-old male with a history of migraine headaches presents for headache. States it is similar to his previous, states it is to the right side of his head, states it started proximally 2 weeks ago denies any trauma or falls. Light sounds make it worse. is currently on Augmentin for prophylaxis treatment for sinusitis. At time of evaluation patient NIH of 0. No focal deficits noted Patient had fluids, Reglan Benadryl Decadron Tylenol here in the emergency department. 0635: Patient was re-evaluated after administration medication he states that he had complete resolution of his symptoms however upon sitting he started having recurrence of the headache. States that he feels like the headache is positional in nature, given the fact that patient is stating significant headache despite administration medication and no recent CT of the head risks benefits was discussed with the patient will proceed with obtaining CT scan of the head additional medications ordered for patient's headache, Compazine 10 mg and magnesium 2 g ordered. 0700: Patient was signed out to morning provider, patient pending CT scan of the head and re-evaluation after additional medication for headache 10/16/2024 0753: Patient signed out to myself, Dr. Schuster. Patient sleeping initially. We will re-evaluate little bit. Waiting head CT, patient has history of migraines but remote, having similar to prior recently being treated for sinusitis with Augmentin normal neurologic exam. Patient has received Regl an, Benadryl, Decadron and Tylenol minimal improvement Compazine and magnesium after this and head CT was ordered for evaluation. CT finds no acute intracranial findings mild bilateral ethmoid sinus disease. On re-evaluation of patient at 10:27 a.m. patient states headaches improved feels slightly dizzy but does feel better. Feels comfortable with discharge home does note he was started Zyrtec generic about a month ago thinks this might be kicking off his headaches but does not appreciate any other inciting factors. Patient states it does feel very similar to his prior migraines but has been a long time. Has not had any recent infectious changes no other acute neurologic changes. Patient is felt appropriate for discharge home. Does have primary care that he can follow up with locally. Discharge Plan Departure Patient Disposition: Home Clinical Impression: Headache Instructions: DI for Headache Activity Restrictions/Additional Instructions: Follow up for recheck if your symptoms are not improving. Please call to set up an appointment. Can take narcotic medication as prescribed. This medication can make you sleepy do not drive, perform hazardous activities or make any major decisions while taking it. This medication will make you constipated please take a stool softe ner once to twice daily until stools are soft and regular. Prescription sent to [facility] in [place]. Please return for fevers, rapidly worsening symptoms, sudden vision changes, new numbness, tingling or weakness, difficulty with speech, passing out, persistent vomiting, chest pain or shortness of breath or other new or concerning changes. Prescriptions: New tramadol 50 mg tablet 50 mg PO Q6H PRN (Reason: pain) Qty: 7 0RF No Action amoxicillin-pot clavulanate 875-125 mg tablet 1 tab PO BID Qty: 14 0RF ibuprofen [Advil] 200 mg tablet 200 mg PO Q6H PRN (Reason: Pain (Scale Score 1-3)) cetirizine [Zyrtec] 10 mg tablet 10 mg PO DAILY PRN (Reason: allergy symptoms) Qty: 30 11RF albuterol sulfate 90 mcg/actuation HFA aerosol inhaler 1 - 2 inh inhalation Q4-6H PRN (Reason: shortness of breath or wheezing) Qty: 8.5 11RF Referrals: Bill Griggs DO [Primary Care Provider] - Stand Alone Forms: Patient Portal/API/Survey
[2024-10-16 05:16] VITALS: BP 142/80; PULSE 91; RESP 18; TEMP 36.7; O2SAT 96; BMI 22.3
[2024-10-16] MEDS: SODIUM CHLORIDE 0.9% 1,000 ML 1000 ML IV (05:31)
[2024-10-16] MEDS: DEXAMETHASONE 10 MG/ML VIAL IV (05:31)
[2024-10-16] MEDS: diphenhydrAMINE 50 MG/ML VIAL 25 MG IV (05:31)
[2024-10-16] MEDS: ACETAMINOPHEN 325 MG TABLET 650 MG PO (05:31)
[2024-10-16] MEDS: METOCLOPRAMIDE 10 MG/2 ML INJ IV (05:32)
[2024-10-16 06:37] VITALS: BP 103/58; PULSE 81; RESP 14; O2SAT 99
--- NOTE | 2024-10-16 06:37 | DI.CT.S_ITS ---
PROCEDURE: CT HEAD/BRAIN WO CON INDICATIONS: headache TECHNIQUE: Noncontrast 4.5 mm thick angled axial sections acquired from the foramen magnum to the vertex, with coronal and sagittal reformats. For radiation dose reduction, the following was used: automated exposure control, adjustment of mA and/or kV according to patient size. COMPARISON: None. FINDINGS: Image quality: Diagnostic. CSF spaces: Basal cisterns are patent. No extra-axial fluid collections. Ventricles are normal in size and shape. Brain: No midline shift. No intracranial masses or hemorrhage. Lim-white matter interface is normal. Skull and face: Calvarium and visualized facial bones are intact, without suspicious lesions. Sinuses: Patchy ethmoid disease. IMPRESSION: No evidence acute intracranial process. Comment: Final report is concordant with preliminary interpretation provided by [facility]. Dictated by: Ricky Hylton M.D. on 10/16/2024 at 8:09 Approved by: Ricky Hylton M.D. on 10/16/2024 at 8:10
--- NOTE | 2024-10-16 06:41 | PC.NURSE ---
Pt ambulatory to imaging with diagnostic imaging manager
[2024-10-16] MEDS: PROCHLORPERAZINE 10 MG/2 ML VIAL IV (06:43)
[2024-10-16] MEDS: MAGNESIUM SULFATE 2 GM/50 ML PIGGYBACK IV (06:43)
--- NOTE | 2024-10-16 06:50 | PC.NURSE ---
Pt states while walking to and from imaging headache increased to 7/10 pain, then began to subside again once lying down.
--- NOTE | 2024-10-16 07:20 | PC.NURSE ---
Per MD Mojica; increase remaining magnesium infusion to 150ml/hr. Pt expresses headache symptoms have started to improve.
[2024-10-16 08:46] VITALS: BP 104/55; PULSE 74; RESP 16; O2SAT 95
--- NOTE | 2024-10-16 10:45 | PC.NURSE ---
Pt reports improvment in headache. States he feels a little dizzy but states he got the best sleep in weeks while being here.
[2024-10-16 10:46] VITALS: BP 105/65; PULSE 74; RESP 16; TEMP 37.1; O2SAT 98
== END 2024-10-16 10:47 | disposition home or self-care (01) ==
PROVIDERS: Emergency Provider Emergency Medicine; PCP Family Medicine
DX: R51.9 Headache, unspecified (principal); R29.700 NIHSS score 0
CPT/HCPCS: 36415; 70450; 96361; 96365; 96375; 99284; J0780; J1100; J1200; J2765; J3475